=== PATIENT | female | born 1990 | race American Indian/Alaskan Native ===

== ENCOUNTER 2016-11-11 07:18 | Emergency (ER) | payer OTHER ==
[2016-11-11 07:59] LABS: Basophils % (Auto) 0.2 % (0.0-1.8); Eosinophils % (Auto) 0.6 % (0.0-4.3); Hematocrit 39.7 % (30.3-42.9); Hemoglobin 13.1 gm/dl (10.1-14.3); Mean Corpuscular HGB Conc 33 % (30-34); Mean Corpuscular Hemoglobin 28 pg (28-32); Mean Corpuscular Volume 86 fl (79-97); Platelet Count 426 K/mm3 (140-440); Red Blood Count 4.62 M/mm3 (3.65-5.03); Red Cell Distribution Width 12.9 % (13.2-15.2); White Blood Count 13.9 K/mm3 (4.5-11.0)
[2016-11-11 08:16] LABS: Alanine Aminotransferase 8 units/L (7-56); Albumin 3.7 g/dL (3.9-5); Albumin/Globulin Ratio 0.9 %; Alkaline Phosphatase 82 units/L (35-129); Anion Gap 19 mmol/L; Bilirubin,Total 0.7 mg/dL (0.1-1.2); Blood Urea Nitrogen 9 mg/dL (7-17); Calcium 9.2 mg/dL (8.4-10.2); Carbon Dioxide 25 mmol/L (22-30); Chloride 92.7 mmol/L (98-107); Glucose 280 mg/dL (65-100); Lipase 22 units/L (13-60); Potassium 3.7 mmol/L (3.6-5.0); Sodium 133 mmol/L (137-145); Total Protein 7.6 g/dL (6.3-8.2)
[2016-11-11 08:48] LABS: Bilirubin,Urine NEG (Negative); Blood,Urine NEG (Negative); Ketones,Urine 20 mg/dL (Negative); Leukocyte Esterase,Urine SM (Negative); Mucus,Urine FEW /HPF; Nitrite,Urine NEG (Negative); Urobilinogen,Urine < 2.0 mg/dL (<2.0)
[2016-11-11 08:52] LABS: Protein,Urine >500 mg/dL (Negative)
--- NOTE | 2016-11-11 16:52 | Emergency Department Report ---
HPI - General Chief Complaint: Abdominal Pain Time Seen by Provider: 11/11/16 16:22 - HPI HPI: 26-year-old female, with a past medical history of type 2 diabetes and seizures , presents today with vomiting, abdominal pain, chest pain and mid back pain. Patient is currently not on medication for her seizures, last seizure was 10 years ago, and takes her mother's Lantus for blood sugar control as she is unable to afford Humilin prescribed to her. Patient states that she has been vomiting 2 months on and off. Also complaining of lower abdominal pain, chest pain and lower back pain 3 days. Describes her lower abdominal pain, chest pain and mid back pain as 5 out of 10 burning pain that comes and goes. Patient was seen at an Urgent care 3 days ago and was given Pepcid and Tylenol without relief. Patient was also given a prescription (name unknown), which was not filled. Patient states her pain worsens with food. Denies drinking any medication for symptomatic relief. Denies fever, chills, shortness of breath, burning upon urination, blood in urine, increased urinary frequency or urgency, vaginal bleeding or discharge. ED Past Medical Hx - Medications Home Medications: Home Medications Medication Instructions Recorded Confirmed Last Taken Type Nitrofurantoin [place]/M-Cryst 100 mg PO Q12HR #10 capsule 11/11/16 Unknown Rx [Macrobid CAP] Omeprazole 40 mg PO QDAY #30 capsule. 11/11/16 Unknown Rx Ondansetron [Zofran Odt] 4 mg PO TID #21 tab.rapdis 11/11/16 Unknown Rx ED Review of Systems ROS: Stated complaint: NAUSEA/VOMITING/CP/BACK PAIN X2 MONTHS Other details as noted in HPI Constitutional: denies: chills, fever Eyes: denies: eye pain ENT: denies: ear pain, throat pain, congestion Respiratory: denies: cough, shortness of breath, wheezing Cardiovascular: chest pain. denies: palpitations Endocrine: no symptoms reported Gastrointestinal: abdominal pain, nausea, vomiting. denies: hematemesis Genitourinary: denies: urgency, dysuria, frequency, hematuria, discharge Musculoskeletal: back pain Skin: denies: rash Neurological: denies: headache, weakness Physical Exam - Physical Exam Vital Signs: Vital Signs 11/11/16 07:37 Temperature 98.3 F Pulse Rate 95 H Respiratory 18 Rate Blood Pressure 145/103 O2 Sat by Pulse 98 Oximetry Physical Exam: GENERAL: The patient is well-developed and well-nourished. Patient is in NAD. HEAD: Normocephalic. Atraumatic. EYES: Extraocular motions are intact, PERRL. NOSE: Normal nasal mucosa with no nasal discharge. THROAT: No erythema, swelling or exudates. NECK: Supple, nontender, without lymphadenopathy. CHEST/LUNGS: Clear to auscultation throughout. CHEST WALL: Positive for anterior chest wall tenderness to palpation. HEART/CARDIOVASCULAR: Regular rate and rhythm. No murmurs, rubs or gallops. ABDOMEN: Tenderness to palpation right lower quadrant with minimal tenderness to palpation of left lower quadrant. Positive for minimal guarding. No rebound tenderness. Bowel sounds normoactive. EXTREMITIES: Peripheral pulses intact. Capillary refill less than 2 seconds. BACK: Full ROM. No midline tenderness. Bilateral paraspinal tenderness of thoracic region. No tenderness to palpation of sciatic notch bilaterally. Negative straight leg raise bilaterally. NEURO: Alert and oriented x 3. GCS score of 15. ED Course Vital Signs 11/11/16 07:37 Temperature 98.3 F Pulse Rate 95 H Respiratory 18 Rate Blood Pressure 145/103 O2 Sat by Pulse 98 Oximetry ED Medical Decision Making - Lab Data Result diagrams: 11/11/16 07:51 11/11/16 07:51 - Radiology Data Radiology results: report reviewed EXAM: CT ABDOMEN PELVIS W CON HISTORY: Abdominal Pain TECHNIQUE: CT of the abdomen and pelvis was performed after the administration of intravenous contrast. Subsequently, CT of the abdomen and pelvis was performed in the delayed phase. Reconstructions were included in the coronal and sagittal planes. PRIORS: None. FINDINGS: Lower thorax: The lung bases are clear. The visualized portions of the heart are normal. There is a small hiatal hernia. Liver: The liver is normal in attenuation. No intrahepatic biliary duct dilation. No focal hepatic lesions. Focal fat is seen adjacent to the fissure for ligamentum teres. Gallbladder/ biliary system: No cholelithiasis. The common bile duct appears nondilated. Spleen: No splenic lesions are seen. Pancreas: No pancreatic lesions are seen. No pancreatic duct dilation. Kidneys: No renal masses, cysts or hydronephrosis. Prominent column of Petr is seen on the right. Adrenal glands: No adrenal masses. Vasculature: The abdominal and pelvic vasculature is patent without variant anatomy. Lymph nodes: No enlarged lymph nodes are seen in the abdomen or pelvis. Bowel, mesentery, peritoneum: No bowel obstruction. No free fluid or free air. No evidence of acute appendicitis. No colonic diverticulosis. No bowel wall thickening. Urinary bladder: No filling defects are seen. Pelvis: Normal anatomy is noted. No masses. Abdominal wall: No abdominal wall hernia or other subcutaneous findings. Bones: No acute or chronic osseous finding. IMPRESSION: 1. No acute intra-abdominal or intrapelvic process. 2. Small hiatal hernia. - Medical Decision Making 26-year-old female presents today with burning pain in her chest, mid back and lower abdomen. Her lab results were reviewed. A urinalysis reveals small leukocyte esterase. Her CT results reveal a small hiatal hernia. No acute intra -abdominal or intrapelvic process noted. Consulted with Dr. Peraza. Patient reported symptomatic relief post-IV fluids and Zofran. Explained to patient that her blood glucose levels are elevated and that she needs to follow up with primary care provider for medication regulation. Patient expressed understanding. Rates her pain as a 3 out of 10 at this time. Patient is in no acute distress at this time. She will be discharged home and is encouraged to follow up with a primary care provider. She will be sent home on omeprazole, Zofran and Macrobid and is encouraged to return to the emergency room for any worsening symptoms. Critical care attestation.: If time is entered above; I have spent that time in minutes in the direct care of this critically ill patient, excluding procedure time. ED Disposition Clinical Impression: Hiatal hernia Nausea & vomiting Qualifiers: Vomiting type: unspecified Vomiting Intractability: non-intractable Qualified Code(s): R11.2 - Nausea with vomiting, unspecified Disposition: DISCHARGED TO HOME OR SELFCARE Is pt being admited?: No Does the pt Need Aspirin: No Condition: Stable Instructions: Abdominal Pain (ED), Hiatal Hernia (ED), Acute Nausea and Vomiting (ED), Urinary Tract Infection in Women (ED) Additional Instructions: Follow-up with gastroenterology. Return to the emergency department if symptoms worsen. Prescriptions: Nitrofurantoin Camas/M-Cryst [Macrobid CAP] 100 mg PO Q12HR #10 capsule Omeprazole 40 mg PO QDAY #30 capsule. Ondansetron [Zofran Odt] 4 mg PO TID #21 tab.rapdis Referrals: PRIMARY CARE, [Primary Care Provider] - 3-5 Days [facility] [Provider Group] - 3-5 Days Forms: Work/School Release Form(ED) Time of Disposition: 20:24
[2016-11-11 17:28] LABS: Creatine Kinase 97 units/L (30-135); Creatine Kinase MB 1.1 ng/mL (0.0-4.0)
[2016-11-11] MEDS ORDERED: NACL ONE (17:31)
[2016-11-11] MEDS ORDERED: ZOFRAN ONE (18:28)
[2016-11-11] MEDS ORDERED: ZOFRAN IV ONE (18:33)
--- NOTE | 2016-11-11 18:43 | Cat Scan Report ---
FINAL REPORT EXAM: CT ABDOMEN PELVIS W CON HISTORY: Abdominal Pain TECHNIQUE: CT of the abdomen and pelvis was performed after the administration of intravenous contrast. Subsequently, CT of the abdomen and pelvis was performed in the delayed phase. Reconstructions were included in the coronal and sagittal planes. PRIORS: None. FINDINGS: Lower thorax: The lung bases are clear. The visualized portions of the heart are normal. There is a small hiatal hernia. Liver: The liver is normal in attenuation. No intrahepatic biliary duct dilation. No focal hepatic lesions. Focal fat is seen adjacent to the fissure for ligamentum teres. Gallbladder/ biliary system: No cholelithiasis. The common bile duct appears nondilated. Spleen: No splenic lesions are seen. Pancreas: No pancreatic lesions are seen. No pancreatic duct dilation. Kidneys: No renal masses, cysts or hydronephrosis. Prominent column of Petr is seen on the right. Adrenal glands: No adrenal masses. Vasculature: The abdominal and pelvic vasculature is patent without variant anatomy. Lymph nodes: No enlarged lymph nodes are seen in the abdomen or pelvis. Bowel, mesentery, peritoneum: No bowel obstruction. No free fluid or free air. No evidence of acute appendicitis. No colonic diverticulosis. No bowel wall thickening. Urinary bladder: No filling defects are seen. Pelvis: Normal anatomy is noted. No masses. Abdominal wall: No abdominal wall hernia or other subcutaneous findings. Bones: No acute or chronic osseous finding. IMPRESSION: 1. No acute intra-abdominal or intrapelvic process. 2. Small hiatal hernia.
[2016-11-11] MEDS ORDERED: NACL 0.9% 1000 ML 1,000 ML IV ONE (19:05)
[2016-11-11] MEDS ORDERED: ZOFRAN ODT ONE (21:58)
[2016-11-11] MEDS ORDERED: ZOFRAN PO ONE (21:59)
[2016-11-11] MEDS ORDERED: ZOFRAN ODT PO ONE (22:00)
[2016-11-11 22:13] VITALS: BP 143/100
== END 2016-11-11 22:13 | disposition home or self-care (01) ==
LOC: ED 07:18
DX: K44.9 Diaphragmatic hernia without obstruction or gangrene (principal); R11.2 Nausea with vomiting, unspecified
CPT/HCPCS: 36415; 74177; 80053; 81001; 82550; 82553; 83690; 84484; 84703; 85025; 93005; 93010; 96374; 99284; J2405; J7030; Q9967; Q0162

== ENCOUNTER 2017-05-22 18:09 | Emergency (ER) | payer OTHER ==
[2017-05-22 19:35] LABS: Basophils % (Auto) 0.4 % (0.0-1.8); Eosinophils % (Auto) 0.4 % (0.0-4.3); Hematocrit 43.3 % (30.3-42.9); Hemoglobin 14.5 gm/dl (10.1-14.3); Mean Corpuscular HGB Conc 34 % (30-34); Mean Corpuscular Hemoglobin 29 pg (28-32); Mean Corpuscular Volume 85 fl (79-97); Platelet Count 652 K/mm3 (140-440); Red Blood Count 5.08 M/mm3 (3.65-5.03); Red Cell Distribution Width 13.4 % (13.2-15.2)
[2017-05-22 20:39] LABS: Anion Gap 22 mmol/L; Blood Urea Nitrogen 14 mg/dL (7-17); Calcium 9.7 mg/dL (8.4-10.2); Carbon Dioxide 25 mmol/L (22-30); Glucose 172 mg/dL (65-100); Potassium 3.3 mmol/L (3.6-5.0); Sodium 135 mmol/L (137-145)
[2017-05-22] MEDS ORDERED: K-DUR PO ONE (21:22)
[2017-05-22] MEDS ORDERED: ZOFRAN IV ONE (21:25)
[2017-05-22] MEDS ORDERED: NACL 0.9% 1000 ML 1,000 ML IV ONE (21:25)
--- NOTE | 2017-05-22 21:31 | Emergency Department Report ---
HPI - General Chief Complaint: Abdominal Pain Time Seen by Provider: 05/22/17 21:20 - HPI HPI: This is a 26-year-old Afro-Portuguese female who presents to the emergency Department from home by EMS with a complaint of a 2-3 day history of nausea and vomiting. It is associated with some mild lower abdominal discomfort. She is not taken anything for her symptoms prior to presentation. She is having trouble keeping even liquids down. After she vomits she feels better for a short amount of time. No recent travel or sick contacts at home. She has a past medical history of [id number] diabetes and hypertension. She does not have a primary care physician. She has a past surgical history of a cholecystectomy. ED Past Medical Hx - Past Medical History Previous Medical History?: Yes Hx Diabetes: Yes - Surgical History Past Surgical History?: Yes Hx Cholecystectomy: Yes - Social History Smoking Status: Never Smoker Substance Use Type: None - Medications Home Medications: Home Medications Medication Instructions Recorded Confirmed Last Taken Type Nitrofurantoin [place]/M-Cryst 100 mg PO Q12HR #10 capsule 11/11/16 Unknown Rx [Macrobid CAP] Omeprazole 40 mg PO QDAY #30 capsule. 11/11/16 Unknown Rx Nitrofurantoin [place]/M-Cryst 100 mg PO Q12HR #14 capsule 05/23/17 Unknown Rx [Macrobid CAP] Ondansetron [Zofran Odt] 4 mg PO Q8H PRN #10 tab.rapdis 05/23/17 Unknown Rx ED Review of Systems ROS: Stated complaint: N/V Other details as noted in HPI Comment: All other systems reviewed and negative Constitutional: denies: chills, fever Eyes: denies: eye pain, eye discharge, vision change ENT: denies: ear pain, throat pain Respiratory: denies: cough, shortness of breath, wheezing Cardiovascular: denies: chest pain, palpitations Gastrointestinal: abdominal pain, nausea, vomiting Genitourinary: denies: urgency, dysuria, discharge Musculoskeletal: denies: back pain, joint swelling, arthralgia Skin: denies: rash, lesions Neurological: denies: headache, weakness, paresthesias Physical Exam - Physical Exam Vital Signs: Vital Signs 05/22/17 18:40 Temperature 99.0 F Pulse Rate 88 Respiratory 22 Rate Blood Pressure 148/104 [Right] Physical Exam: GENERAL: The patient is well-developed well-nourished. HEENT: Normocephalic. Atraumatic. Extraocular motions are intact. Patient has moist mucous membranes. Pupils equal reactive to light bilaterally. NECK: Supple. Trachea is midline. CHEST/LUNGS: Clear to auscultation. There is no respiratory distress noted. HEART/CARDIOVASCULAR: Regular. There is no tachycardia. There is no gallop rub or murmur. ABDOMEN: Abdomen is soft. Mild tenderness to palpation to the lower quadrants of the abdomen. Patient has normal bowel sounds. There is no abdominal distention. SKIN: Skin is warm and dry. NEURO: The patient is awake, alert, and oriented. The patient is cooperative. The patient has no focal neurologic deficits. The patient has normal speech. MUSCULOSKELETAL: There is no tenderness or deformity. There is no limitation range of motion. There is no evidence of acute injury. ED Course Vital Signs 05/22/17 18:40 Temperature 99.0 F Pulse Rate 88 Respiratory 22 Rate Blood Pressure 148/104 [Right] ED Medical Decision Making - Lab Data Result diagrams: 05/22/17 19:11 05/22/17 19:11 - Radiology Data Radiology results: report reviewed, image reviewed interpreted by me: Abdominal x-ray shows nonspecific nonobstructive bowel gas. CT the abdomen and pelvis with IV contrast does not show any acute abdominal or pelvic process. - Medical Decision Making 26-year-old female presents with a few days of nausea and vomiting and some mild abdominal discomfort. She does not have any fever and her vital signs are normal. She does have a leukocytosis however she tends to have a leukocytosis during each of her visits. Labs are mostly unremarkable except for a urinary tract infection. Abdominal x-ray does not show any acute process. CT of the abdomen and pelvis does not show any acute process. I missed giving the patient a prescription for her urinary tract infection but it was printed out and she will be called back by the charge nurse and it has been left at the front clerk for her to supervisor opening and picking and start. - Differential Diagnosis UTI, fibroid, , colitis, diverticulitis Critical Care Time: No Critical care attestation.: If time is entered above; I have spent that time in minutes in the direct care of this critically ill patient, excluding procedure time. ED Disposition Clinical Impression: Nausea & vomiting Qualifiers: Vomiting type: unspecified Vomiting Intractability: non-intractable Qualified Code(s): R11.2 - Nausea with vomiting, unspecified Abdominal pain Qualifiers: Abdominal location: unspecified location Qualified Code(s): R10.9 - Unspecified abdominal pain Disposition: TO HOME OR SELFCARE Is pt being admited?: No Condition: Stable Instructions: Acute Nausea and Vomiting (ED), Abdominal Pain (ED) Additional Instructions: Please follow-up with a primary care physician in the next few days. Return to the emergency department with any worsening of your symptoms or any acute distress. Prescriptions: Ondansetron [Zofran Odt] 4 mg PO Q8H PRN #10 tab.rapdis PRN Reason: Nausea Referrals: MOLLY BOLAND MD [Primary Care Provider] - 3-5 Days [facility] [Outside] - 3-5 Days [facility] [Outside] - 3-5 Days [facility] [Outside] - 3-5 Days Time of Disposition: 01:57
[2017-05-23 01:22] LABS: Bilirubin,Urine NEG (Negative); Blood,Urine LG (Negative); Ketones,Urine 20 mg/dL (Negative); Leukocyte Esterase,Urine TR (Negative); Mucus,Urine FEW /HPF; Nitrite,Urine NEG (Negative); Urobilinogen,Urine < 2.0 mg/dL (<2.0)
[2017-05-23 01:23] LABS: Protein,Urine >500 mg/dL (Negative); RBC,Urine > 182.0 /HPF (0.0-6.0)
--- NOTE | 2017-05-23 01:27 | Cat Scan Report ---
FINAL REPORT PROCEDURE: CT ABDOMEN PELVIS W CON TECHNIQUE: Computerized axial tomography of the abdomen and pelvis was performed after the IV injection of iodinated nonionic contrast. HISTORY: ABD PAIN COMPARISON: No prior studies are available for comparison. FINDINGS: Visualized lower thorax: No significant abnormality. Liver: Normal size and attenuation. Spleen: Normal size and attenuation. Gallbladder and biliary system: The gallbladder is absent. No dilatation of the biliary ductal system. Pancreas: Normal. Adrenals: Normal. Kidneys: Kidneys have a normal size. No hydronephrosis. No renal masses or stones. GI tract: Stomach is normal. The small bowel has a normal caliber. No obstruction, ileus or enteritis. The cecum and colon are normal. The appendix region is unremarkable.. Lymph nodes and mesentery: Normal. Vasculature: Normal. Bladder: Normal. Reproductive organs: The uterus is normal. No adnexal masses.. Peritoneum: No free fluid. Musculoskeletal structures: No significant abnormality. Other: None. IMPRESSION: There is no evidence of intestinal or urinary tract obstruction. No ileus or enteritis. Previous cholecystectomy.
[2017-05-23 02:05] VITALS: BP 161/98
--- NOTE | 2017-05-23 09:24 | XRay Report ---
ABDOMEN TWO VIEWS: 05/22/17 21:25:00 CLINICAL: Abdominal pain. COMPARISON: FINDINGS: Supine upright views demonstrate a normal bowel gas pattern with a large line of stool throughout the colon and in the rectum. No distended bowel and no air-fluid levels. No mass or suspicious calcifications. Surgical clips in the right upper quadrant. No pneumoperitoneum. The bones and soft tissues are normal. IMPRESSION: Negative abdomen with abundant stool.
== END 2017-05-23 02:05 | disposition home or self-care (01) ==
LOC: ED 18:09
DX: R11.2 Nausea with vomiting, unspecified (principal); R10.30 Lower abdominal pain, unspecified; E11.9 Type 2 diabetes mellitus without complications
CPT/HCPCS: 36415; 74020; 74177; 80048; 81001; 82805; 83690; 84703; 85025; 96361; 96374; 99285; J2405; J7030; Q9967

== ENCOUNTER 2018-02-26 10:03 | Emergency (ER) | payer SELFPAY ==
[2018-02-26 10:53] LABS: Basophils # (Auto) 0.1 K/mm3 (0.0-0.1); Basophils % (Auto) 0.4 % (0.0-1.8); Hematocrit 41.9 % (30.3-42.9); Hemoglobin 13.4 gm/dl (10.1-14.3); Lymphocytes # (Auto) 2.1 K/mm3 (1.2-5.4); Lymphocytes % (Auto) 12.6 % (13.4-35.0); Mean Corpuscular HGB Conc 32 % (30-34); Mean Corpuscular Hemoglobin 28 pg (28-32); Mean Corpuscular Volume 89 fl (79-97); Monocytes # (Auto) 0.6 K/mm3 (0.0-0.8); Monocytes % (Auto) 3.5 % (0.0-7.3); Platelet Count 524 K/mm3 (140-440); Red Blood Count 4.72 M/mm3 (3.65-5.03); Red Cell Distribution Width 13.3 % (13.2-15.2)
[2018-02-26 11:08] LABS: BUN/Creatinine Ratio 19; Blood Urea Nitrogen 21 mg/dL (7-17); Calcium 9.1 mg/dL (8.4-10.2); Hemolysis Index 12
[2018-02-26] MEDS ORDERED: NACL 0.9% 1000 ML 2,000 ML IV ONE ×2 (17:35→20:58)
[2018-02-26] MEDS ORDERED: HALDOL IM STA (17:35)
[2018-02-26] MEDS ORDERED: CARAFATE PO ONE (17:36)
--- NOTE | 2018-02-26 17:43 | Emergency Department Report ---
ED General Adult HPI - General Chief complaint: Hyperglycemia Stated complaint: BACK/ABD PAIN Time Seen by Provider: 02/26/18 17:28 Source: patient, RN notes reviewed, old records reviewed Mode of arrival: Wheelchair Limitations: No Limitations - History of Present Illness Initial comments: This is a 27-year-old female who is previously unknown to this provider. She does not have a local primary care doctor and she reports a past medical history of diabetes. She does not know hemoglobin A1c. She presents to the ER with a complaint of diffuse lower abdominal pain, intractable nausea and vomiting, weakness, chest wall pain and back pain. The patient's symptoms have been present for 2 days. They are constant. They worse when she attempts to eat, and they worsen with palpation. She denies leg pain, leg swelling, , delivery within the past 2 months, denies DVT, pulmonary embolus risk factors, and she also indicates no urinary symptoms. Her symptoms do not change when taking a hot bath or shower. -: Gradual Location: chest, back, abdomen Radiation: back Quality: aching Consistency: intermittent Improves with: medication, rest Worsens with: eating, movement Associated Symptoms: chest pain, loss of appetite, malaise, nausea/vomiting, weakness. denies: confusion, cough, diaphoresis, fever/chills, headaches, rash , seizure, shortness of breath, syncope - Related Data Previous Rx's Medication Instructions Recorded Last Taken Type Nitrofurantoin Kingfisher/M-Cryst 100 mg PO Q12HR #10 capsule 11/11/16 Unknown Rx [Macrobid CAP] Omeprazole 40 mg PO QDAY #30 capsule. 11/11/16 Unknown Rx Nitrofurantoin Kingfisher/M-Cryst 100 mg PO Q12HR #14 capsule 05/23/17 Unknown Rx [Macrobid CAP] Ondansetron [Zofran Odt] 4 mg PO Q8H PRN #10 tab.rapdis 05/23/17 Unknown Rx Dicyclomine [Bentyl] 10 mg PO QID PRN #20 capsule 02/27/18 Unknown Rx Metoclopramide [Reglan] 10 mg PO Q6HR PRN #30 tab 02/27/18 Unknown Rx Promethazine [Phenergan SUPPOS] 50 mg NC Q6H PRN #15 supp.rect 02/27/18 Unknown Rx Allergies Allergy/AdvReac Type Severity Reaction Status Date / Time No Known Allergies Allergy Unverified 11/11/16 07:41 ED Review of Systems ROS: Stated complaint: BACK/ABD PAIN Other details as noted in HPI Comment: All other systems reviewed and negative ED Past Medical Hx - Past Medical History Hx Diabetes: Yes - Surgical History Hx Cholecystectomy: Yes - Social History Smoking Status: Never Smoker Substance Use Type: None - Medications Home Medications: Home Medications Medication Instructions Recorded Confirmed Last Taken Type Nitrofurantoin Kingfisher/M-Cryst 100 mg PO Q12HR #10 capsule 11/11/16 Unknown Rx [Macrobid CAP] Omeprazole 40 mg PO QDAY #30 capsule.dr 11/11/16 Unknown Rx Nitrofurantoin Kingfisher/M-Cryst 100 mg PO Q12HR #14 capsule 05/23/17 Unknown Rx [Macrobid CAP] Ondansetron [Zofran Odt] 4 mg PO Q8H PRN #10 tab.rapdis 05/23/17 Unknown Rx Dicyclomine [Bentyl] 10 mg PO QID PRN #20 capsule 02/27/18 Unknown Rx Metoclopramide [Reglan] 10 mg PO Q6HR PRN #30 tab 02/27/18 Unknown Rx Promethazine [Phenergan SUPPOS] 50 mg NC Q6H PRN #15 supp.rect 02/27/18 Unknown Rx ED Physical Exam - General Limitations: No Limitations General appearance: alert, in distress, obese - Head Head exam: Present: atraumatic, normocephalic - Eye Eye exam: Present: EOMI. Absent: nystagmus - ENT ENT exam: Present: mucous membranes dry - Neck Neck exam: Present: normal inspection, full ROM - Respiratory Respiratory exam: Present: normal lung sounds bilaterally. Absent: respiratory distress - Cardiovascular Cardiovascular Exam: Present: normal rhythm, tachycardia, normal heart sounds. Absent: systolic murmur, diastolic murmur, rubs, gallop - GI/Abdominal GI/Abdominal exam: Present: soft, tenderness, normal bowel sounds, other (there is suprapubic and left lower quadrant abdominal tenderness. There is no rebound , guarding or peritoneal signs.). Absent: distended, guarding, rebound, rigid, pulsatile mass - Extremities Exam Extremities exam: Present: normal inspection, full ROM, other (there is no palpable cord. There is a negative Homans sign.). Absent: tenderness, pedal edema, joint swelling, calf tenderness - Back Exam Back exam: Present: normal inspection, full ROM. Absent: tenderness, CVA tenderness (R), paraspinal tenderness, vertebral tenderness - Neurological Exam Neurological exam: Present: alert, oriented X3, CN II-XII intact, other ( Extraocular movements intact. Tongue midline. No facial droop. Facial sensation intact to light touch in the V1, V2, V3 distribution bilaterally. 5 and 5 strength in 4 extremities.. Sensation is intact to light touch in 4 extremities.). Absent: motor sensory deficit - Psychiatric Psychiatric exam: Present: normal affect, normal mood - Skin Skin exam: Present: warm, dry, intact, normal color. Absent: rash ED Course Vital Signs 02/26/18 02/26/18 02/26/18 10:11 15:35 17:56 Temperature 98.7 F 98.8 F Pulse Rate 118 H 111 H Respiratory 16 Rate Blood Pressure 157/97 Blood Pressure 159/106 [Right] O2 Sat by Pulse 98 98 Oximetry 02/26/18 02/26/18 02/26/18 19:30 19:35 20:30 Temperature Pulse Rate 126 H 121 H Respiratory 22 16 20 Rate Blood Pressure 146/100 154/101 Blood Pressure [Right] O2 Sat by Pulse 96 100 97 Oximetry 02/26/18 02/26/18 02/26/18 21:00 21:30 22:36 Temperature Pulse Rate 119 H 112 H 109 H Respiratory 14 14 15 Rate Blood Pressure 161/99 145/88 134/83 Blood Pressure [Right] O2 Sat by Pulse 100 98 97 Oximetry 02/26/18 02/26/18 02/26/18 23:00 23:30 23:45 Temperature Pulse Rate 112 H Respiratory 14 16 16 Rate Blood Pressure 149/96 158/101 Blood Pressure [Right] O2 Sat by Pulse 98 97 Oximetry - Reevaluation(s) Reevaluation #1: 02/26/18 17:42 Differential diagnosis, including but not limited to: Constipation, gastroparesis, cyclic vomiting syndrome, dehydration, hyperglycemia, hyperosmolar state without anion gap acidosis, urinary tract infection, pneumonia, acute coronary syndrome Assessment and plan: 27-year-old female who is low risk by well's criteria, without pulmonary embolus or DVT risk factors, who is low risk by ROMERO score, low risk by heart scar, with a primary complaint of abdominal cramping, nausea and vomiting and weakness. Also has incidental chest pain and back pain. Symptoms have been going on for 48 hours. Patient will be given Haldol for symptom relief. She will also be given IV fluids and Carafate. A CT scan of her abdomen and pelvis will be obtained. EKG , chest x-ray, troponin will be obtained 1. Symptoms have been present for 48 hours, therefore as per the [employer] clinical policy, myocardial infarction may be excluded with one set of troponin/cardiac enzymes. Reevaluation #2: 02/26/18 19:07 Laboratory studies reviewed and are unremarkable. Urinalysis is pending. CT scan of the abdomen and pelvis interpretation is pending. No active vomiting at this time. Improved on Haldol. IV fluids infusing. Reevaluation #3: 02/26/18 20:24 CT scan of the abdomen and pelvis suggests constipation. Patient has been resting comfortably. She is still persistently tachycardic. A d-dimer was sent , and found to be elevated. A nuclear medicine study has been ordered. Reevaluation #4: 02/26/18 20:58 No additional vomiting so far. Heart rate now 112. Nuclear medicine study is pending. Additional IV fluids ordered. Reevaluation #5: 02/27/18 00:53 Nuclear medicine study is low probability for pulmonary embolus. Troponin is negative 2. Repeat EKG is negative/unchanged. Still somewhat tachycardic. Current rate is 105-106. Upon review of old visits it appears that the patient typically is tachycardic. The patient has been observed in the ER for over 14 hours without clinical decompensation. She is tolerating oral feeds at this time and has been reevaluated by myself multiple times. No active vomiting is noted. 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 ED Medical Decision Making - Lab Data Result diagrams: 02/26/18 10:33 02/26/18 10:33 Vital Signs 02/26/18 02/26/18 02/26/18 10:11 15:35 17:56 Temperature 98.7 F 98.8 F Pulse Rate 118 H 111 H Respiratory 16 Rate Blood Pressure 157/97 Blood Pressure 159/106 [Right] O2 Sat by Pulse 98 98 Oximetry Lab Results 02/26/18 02/26/18 02/26/18 Range/Units 10:16 10:33 10:33 WBC 16.4 H (4.5-11.0) K/mm3 RBC 4.72 (3.65-5.03) M/mm3 Hgb 13.4 (10.1-14.3) gm/dl Hct 41.9 (30.3-42.9) % MCV 89 (79-97) fl MCH 28 (28-32) pg MCHC 32 (30-34) % RDW 13.3 (13.2-15.2) % Plt Count 524 H (140-440) K/mm3 Lymph % (Auto) 12.6 L (13.4-35.0) % Kingfisher % (Auto) 3.5 (0.0-7.3) % Eos % (Auto) 0.0 (0.0-4.3) % Baso % (Auto) 0.4 (0.0-1.8) % Lymph # 2.1 (1.2-5.4) K/mm3 Kingfisher # 0.6 (0.0-0.8) K/mm3 Eos # 0.0 (0.0-0.4) K/mm3 Baso # 0.1 (0.0-0.1) K/mm3 Seg Neutrophils % 83.5 H (40.0-70.0) % Seg Neutrophils # 13.7 H (1.8-7.7) K/mm3 PT (12.2-14.9) Sec. INR (0.87-1.13) VBG pH (7.320-7.420) Sodium 134 L (137-145) mmol/L Potassium 4.2 (3.6-5.0) mmol/L Chloride 91.3 L (98-107) mmol/L Carbon Dioxide 22 (22-30) mmol/L Anion Gap 25 mmol/L BUN 21 H (7-17) mg/dL Creatinine 1.1 (0.7-1.2) mg/dL Estimated GFR > 60 ml/min BUN/Creatinine Ratio 19 % Glucose 353 H (65-100) mg/dL POC Glucose 325 H (70-105) Calcium 9.1 (8.4-10.2) mg/dL Magnesium (1.7-2.3) mg/dL Total Creatine Kinase (30-135) units/L Troponin T (0.00-0.029) ng/mL HCG, Qual (Negative) 02/26/18 02/26/18 02/26/18 Range/Units 10:33 10:33 17:39 WBC (4.5-11.0) K/mm3 RBC (3.65-5.03) M/mm3 Hgb (10.1-14.3) gm/dl Hct (30.3-42.9) % MCV (79-97) fl MCH (28-32) pg MCHC (30-34) % RDW (13.2-15.2) % Plt Count (140-440) K/mm3 Lymph % (Auto) (13.4-35.0) % Kingfisher % (Auto) (0.0-7.3) % Eos % (Auto) (0.0-4.3) % Baso % (Auto) (0.0-1.8) % Lymph # (1.2-5.4) K/mm3 Kingfisher # (0.0-0.8) K/mm3 Eos # (0.0-0.4) K/mm3 Baso # (0.0-0.1) K/mm3 Seg Neutrophils % (40.0-70.0) % Seg Neutrophils # (1.8-7.7) K/mm3 PT (12.2-14.9) Sec. INR (0.87-1.13) VBG pH 7.319 L (7.320-7.420) Sodium (137-145) mmol/L Potassium (3.6-5.0) mmol/L Chloride (98-107) mmol/L Carbon Dioxide (22-30) mmol/L Anion Gap mmol/L BUN (7-17) mg/dL Creatinine (0.7-1.2) mg/dL Estimated GFR ml/min BUN/Creatinine Ratio % Glucose (65-100) mg/dL POC Glucose 290 H (70-105) Calcium (8.4-10.2) mg/dL Magnesium (1.7-2.3) mg/dL Total Creatine Kinase (30-135) units/L Troponin T (0.00-0.029) ng/mL HCG, Qual Negative (Negative) 02/26/18 02/26/18 Range/Units 17:43 17:43 WBC (4.5-11.0) K/mm3 RBC (3.65-5.03) M/mm3 Hgb (10.1-14.3) gm/dl Hct (30.3-42.9) % MCV (79-97) fl MCH (28-32) pg MCHC (30-34) % RDW (13.2-15.2) % Plt Count (140-440) K/mm3 Lymph % (Auto) (13.4-35.0) % Kingfisher % (Auto) (0.0-7.3) % Eos % (Auto) (0.0-4.3) % Baso % (Auto) (0.0-1.8) % Lymph # (1.2-5.4) K/mm3 Kingfisher # (0.0-0.8) K/mm3 Eos # (0.0-0.4) K/mm3 Baso # (0.0-0.1) K/mm3 Seg Neutrophils % (40.0-70.0) % Seg Neutrophils # (1.8-7.7) K/mm3 PT 12.5 (12.2-14.9) Sec. INR 0.89 (0.87-1.13) VBG pH (7.320-7.420) Sodium (137-145) mmol/L Potassium (3.6-5.0) mmol/L Chloride (98-107) mmol/L Carbon Dioxide (22-30) mmol/L Anion Gap mmol/L BUN (7-17) mg/dL Creatinine (0.7-1.2) mg/dL Estimated GFR ml/min BUN/Creatinine Ratio % Glucose (65-100) mg/dL POC Glucose (70-105) Calcium (8.4-10.2) mg/dL Magnesium 2.60 H (1.7-2.3) mg/dL Total Creatine Kinase 60 (30-135) units/L Troponin T < 0.010 (0.00-0.029) ng/mL HCG, Qual (Negative) - EKG Data -: EKG Interpreted by Ut EKG shows normal: sinus rhythm Rate: tachycardia - EKG Data When compared to previous EKG there are: previous EKG unavailable 02/26/18 19:07 Sinus tachycardia, 119 bpm, normal axis, QTC prolonged, morphologic consistent with a STEMI - Radiology Data Radiology results: report reviewed, image reviewed Critical care attestation.: If time is entered above; I have spent that time in minutes in the direct care of this critically ill patient, excluding procedure time. ED Disposition Clinical Impression: History of nausea and vomiting Disposition: TO HOME OR SELFCARE Is pt being admited?: No Does the pt Need Aspirin: No Condition: Stable Instructions: Acute Nausea and Vomiting (ED) Additional Instructions: Take nausea medication, pain medication as needed/directed. Follow up with a primary care doctor or electric arc welder within the next 7-10 days. Return to the ER right away with new pain, worsened pain, migration of pain, fevers, chills, lethargy, irritability, projectile vomiting, change in mental status, confusion, inability to tolerate liquid feeds. Referrals: PRIMARY CARE, [Primary Care Provider] - 3-5 Days NIURKA RUIZ MD [Staff Physician] - 3-5 Days JUANY EWING MD [Staff Physician] - 3-5 Days
[2018-02-26 18:03] LABS: INR 0.89 (0.87-1.13)
--- NOTE | 2018-02-26 19:05 | XRay Report ---
FINAL REPORT EXAM: XR CHEST ROUTINE 2V HISTORY: chest pain back pain TECHNIQUE: 2 view examination of the chest PRIORS: None FINDINGS: Limited examination due to prominent soft tissue attenuation. There is no visible pulmonary consolidation, pleural effusion, or pneumothorax. Cardiac silhouette size is normal without vascular congestion. No visible acute displaced fracture in the regional skeleton. IMPRESSION: No evidence of acute cardiopulmonary disease
--- NOTE | 2018-02-26 19:29 | Cat Scan Report ---
FINAL REPORT EXAM: CT ABDOMEN PELVIS WO CON HISTORY: lower abdominal pain, nausea and vomiting TECHNIQUE: Spiral CT scanning of the abdomen and pelvis. No oral or IV contrast administered. Multiplanar reformations. PRIORS: 23 May 2017. FINDINGS: Abdomen: Examination limited due to lack of contrast administration. Visualized lung bases grossly unremarkable. Gallbladder surgically absent. Liver grossly unremarkable. Spleen grossly unremarkable. Pancreas grossly unremarkable. Mild dilatation of left renal collecting system and ureter may be physiologic secondary to bladder distention. No apparent renal calcifications. Right kidney grossly unremarkable. Adrenal glands grossly unremarkable. Pelvis: Bowel grossly unremarkable, with moderate-large amount of retained stool. Appendix within normal limits. No significant free peritoneal fluid or loculated fluid collection. Abdominal aorta non-aneurysmal. Marked urinary bladder distention, with bladder dome extending to umbilicus level, nonspecific. IMPRESSION: 1. Urinary bladder distention and probable mild, physiologic dilatation of left renal collecting system, nonspecific. 2. Findings suggestive of constipation.
[2018-02-26 20:07] LABS: Bilirubin,Urine NEG (Negative); Blood,Urine SM (Negative); Color,Urine Yellow (Yellow); Mucus,Urine FEW /HPF; Urobilinogen,Urine < 2.0 mg/dL (<2.0)
[2018-02-26 20:09] LABS: Protein,Urine >500 mg/dL (Negative)
[2018-02-26] MEDS ORDERED: NACL 0.9% 1000 ML 1,000 ML ONE (20:19)
[2018-02-26] MEDS ORDERED: DILAUDID IV ONE (22:50)
--- NOTE | 2018-02-26 23:26 | Nuclear Medicine Report ---
FINAL REPORT PROCEDURE: NM LUNG SCAN PERF/VENT TECHNIQUE: Five mCi Tc-99m MAA was injected IV for pulmonary perfusion imaging in multiple projections. Fifteen mCi xenon 133 was inhaled for pulmonary ventilation imaging in multiple projections. Injection site: RIGHT antecubital fossa. CPT 28206 REGULATORY GUIDELINES: The patient was released based upon guidelines established in [place] State Regulations for Protection Against Radiation, Chapter 5306-21-50-35, Release of Individuals Containing Radioactive Drugs or Implants. HISTORY: cp tachycardia COMPARISON: No prior studies are available for comparison. FINDINGS: Perfusion: No defects . Ventilation: No defects . IMPRESSION: For according to modified PIOPED criteria there is no evidence of pulmonary embolism.
[2018-02-27 02:50] VITALS: BP 146/105
== END 2018-02-27 02:48 | disposition home or self-care (01) ==
LOC: ED 10:03
DX: R11.2 Nausea with vomiting, unspecified (principal); R10.84 Generalized abdominal pain; R53.1 Weakness; R07.89 Other chest pain; M54.9 Dorsalgia, unspecified; E11.9 Type 2 diabetes mellitus without complications
CPT/HCPCS: 36415; 71046; 74176; 78582; 80048; 81001; 82550; 82805; 82962; 83735; 84484; 84703; 85025; 85379; 85610; 93005; 93010; 96361; 96372; 96374; 99285; A9540; A9558; J1170; J1630; J7030